=== PATIENT | male | born 1970 | race African-American/Black ===

== ENCOUNTER 2021-04-13 13:37 | Emergency (ER) | payer OTHER ==
[2021-04-13 13:45] VITALS: BMI 25.8
[2021-04-13] MEDS ORDERED: FOLIC ACID INJECTION - 1 MG, THIAMINE HCL 100 MG, MULTIVIT INJECTION ADULT 10 ML in SOD... IVPB ONE (14:17)
[2021-04-13] MEDS ORDERED: chlordiazePOXIDE HCL 25 MG CAPSULE PO ONE ×2 (14:17→16:24)
[2021-04-13] MEDS ORDERED: chlordiazePOXIDE HCL 25 MG CAPSULE ONE ×2 (14:46→16:58)
[2021-04-13 15:10] LABS: EPI CELLS 6 /uL (0-25.1); HYALINE CASTS 2 /uL (0-3.1); URINE APPEARANCE CLEAR; URINE BACTERIA 25 /uL (0-1359); URINE BILIRUBIN 2+ (NEGATIVE); URINE COLOR DK YELLOW; URINE GLUCOSE (UA) NEGATIVE (NEGATIVE); URINE KETONE 1+ (NEGATIVE); URINE LEUK ESTERASE NEGATIVE (NEGATIVE); URINE NITRITE NEGATIVE (NEGATIVE); URINE PROTEIN 2+ (NEGATIVE); URINE RBC 17 /uL (0-23.9); URINE UROBILINOGEN 4.0 E.U/dl mg/dL (0.2-1.0); URINE WBC 7 /uL (0-25.8)
[2021-04-13 15:17] LABS: BASO % 0.4 % (0-2.0); EOS % 0.3 % (0-4.5); HEMATOCRIT 43.1 % (35.4-49); HEMOGLOBIN 14.2 GM/dL (11.7-16.9); LYMPH % 16.4 % (8-40); MCH 30.4 pg (25.7-33.7); MCHC 32.9 g/dl (32.0-35.9); MEAN CELL VOLUME 92.3 fl (80-96); MEAN PLT VOLUME 9.1 fl (7.5-11.1); MONO % 11.5 % (3.8-10.2); NEUT % 71.4 % (42.8-82.8); PLATELET COUNT 149 10^3/uL (134-434); RBC 4.67 M/mm3 (4.00-5.60); RDW 14.8 % (11.9-15.9); WHITE BLOOD COUNT 4.9 K/mm3 (4.0-10.0)
[2021-04-13 15:24] LABS: INR 1.15 (0.83-1.09); PROTHROMBIN TIME (PATIENT) 13.9 SEC (9.7-13.0)
[2021-04-13 15:25] LABS: CHLORIDE 96 mmol/L (98-107); SODIUM 128 mmol/L (136-145)
[2021-04-13 15:27] LABS: ALBUMIN 3.9 g/dl (3.4-5.0); BLOOD UREA NITROGEN 5.8 mg/dL (7-18); CALCIUM 9.7 mg/dL (8.5-10.1); CO2 29 mmol/L (21-32); GLUCOSE,RANDOM 94 mg/dL (74-106)
[2021-04-13 15:30] LABS: CREATININE 0.8 mg/dL (0.55-1.3)
[2021-04-13 15:32] LABS: BILIRUBIN,TOTAL 1.1 mg/dL (0.2-1); TOT PROT 9.6 g/dl (6.4-8.2)
[2021-04-13 15:33] LABS: ALK PHOS 69 U/L (45-117)
[2021-04-13 15:35] LABS: ANION GAP 3 MMOL/L (8-16); SGOT/AST 219 U/L (15-37); SGPT/ALT 91 U/L (13-61)
[2021-04-13 17:19] LABS: CALCIUM 8.9 mg/dL (8.5-10.1)
[2021-04-13 17:20] LABS: ALBUMIN 3.7 g/dl (3.4-5.0); BLOOD UREA NITROGEN 6.2 mg/dL (7-18)
[2021-04-13 17:23] LABS: CREATININE 0.6 mg/dL (0.55-1.3)
[2021-04-13 17:24] LABS: BILIRUBIN,TOTAL 1.2 mg/dL (0.2-1)
[2021-04-13 17:25] LABS: TOT PROT 7.5 g/dl (6.4-8.2)
[2021-04-13 17:56] VITALS: BP 170/123; PULSE 86; TEMP 98.6
== END 2021-04-13 18:37 | disposition home or self-care (01) ==
LOC: JER 13:37
PROC: 3E033GC Introduction of Other Therapeutic Substance into Peripheral Vein, Percutaneous Approach (ICD-10-PCS; principal; 2021-04-13)
DX: F10.239 Alcohol dependence with withdrawal, unspecified (principal)
CPT/HCPCS: 36415; 80053; 81003; 85025; 85610; 87086; 93005; 93010; 99284-25

== ENCOUNTER 2024-02-17 19:16 | Observation (INO) | payer OTHER ==
[2024-02-17 20:42] LABS: BASO % 0.5 % (0-2.0); EOS % 0.5 % (0-4.5); HEMATOCRIT 37.4 % (35.4-49); HEMOGLOBIN 12.3 GM/dL (11.7-16.9); MCH 30.7 pg (25.7-33.7); MCHC 32.9 g/dl (32.0-35.9); MEAN CELL VOLUME 93.4 fl (80-96); MEAN PLT VOLUME 8.8 fl (7.5-11.1); MONO % 11.3 % (3.8-10.2); NEUT % 72.7 % (42.8-82.8); PLATELET COUNT 118 10^3/uL (134-434); RBC 4.01 M/mm3 (4.00-5.60); RDW 16.8 % (11.9-15.9); WHITE BLOOD COUNT 5.7 K/mm3 (4.0-10.0)
[2024-02-17 21:14] LABS: POTASSIUM 4.3 mmol/L (3.5-5.1)
[2024-02-17 21:16] LABS: CALCIUM 9.1 mg/dL (8.5-10.1)
[2024-02-17 21:17] LABS: ALBUMIN 3.5 g/dl (3.4-5.0); BLOOD UREA NITROGEN 6.7 mg/dL (7-18)
[2024-02-17 21:20] LABS: CREATININE 0.9 mg/dL (0.55-1.3)
[2024-02-17 21:21] LABS: BILIRUBIN,TOTAL 0.8 mg/dL (0.2-1); TOT PROT 7.8 g/dl (6.4-8.2)
[2024-02-17] MEDS ORDERED: MAGNESIUM SULFATE IN WATER 2 GM/50 ML IVPB IVPB ONE (21:49)
[2024-02-17] MEDS ORDERED: THIAMINE HCL 200 MG/2 ML VIAL ONE (21:49)
[2024-02-17] MEDS: THIAMINE HCL 200 MG/2 ML VIAL IVPB ONE (22:04)
[2024-02-17] MEDS: MAGNESIUM SULFATE IN WATER 2 GM/50 ML IVPB IVPB ONE (22:21)
[2024-02-17] MEDS: LACTATED RINGERS SOLUTION 1,000 ML/1,000 ML INFUS.BAG IV SCH (23:10)
[2024-02-18 01:21] VITALS: BMI 24.8
[2024-02-18 08:34] LABS: BASO % 0.4 % (0-2.0); EOS % 2.3 % (0-4.5); HEMATOCRIT 37.3 % (35.4-49); HEMOGLOBIN 12.1 GM/dL (11.7-16.9); LYMPH % 39.7 % (8-40); MCH 30.3 pg (25.7-33.7); MCHC 32.4 g/dl (32.0-35.9); MEAN CELL VOLUME 93.5 fl (80-96); MEAN PLT VOLUME 9.1 fl (7.5-11.1); MONO % 15.5 % (3.8-10.2); NEUT % 42.1 % (42.8-82.8); PLATELET COUNT 118 10^3/uL (134-434); RBC 3.99 M/mm3 (4.00-5.60); WHITE BLOOD COUNT 4.8 K/mm3 (4.0-10.0)
[2024-02-18] MEDS: FOLIC ACID 1 MG TABLET (FP) PO SCH (10:12)
[2024-02-18] MEDS: LOSARTAN POTASSIUM 25 MG TABLET PO SCH (10:12)
[2024-02-18] MEDS: MULTIVITAMINS (DAILY MVI) TABLET (FP) PO SCH (10:12)
[2024-02-18] MEDS: THIAMINE 100 MG TABLET PO SCH (10:12)
[2024-02-18 10:50] LABS: BLOOD UREA NITROGEN 6.4 mg/dL (7-18); CALCIUM 8.6 mg/dL (8.5-10.1); CREATININE 0.8 mg/dL (0.55-1.3); MAGNESIUM 1.5 mg/dL (1.8-2.4); POTASSIUM 3.5 mmol/L (3.5-5.1)
[2024-02-18] MEDS: MAGNESIUM 2GM/50ML STERILE WATER IVPB IVPB ONE (14:45)
[2024-02-18] MEDS: chlordiazePOXIDE HCL 10 MG CAPSULE PO PRN (14:46)
[2024-02-18 17:43] VITALS: RESP 20
[2024-02-18] MEDS: METOPROLOL TARTRATE 25 MG TABLET (FP) PO SCH (21:47)
[2024-02-18] MEDS: MAGNESIUM OXIDE 400 MG TABLET (FP) PO SCH (21:47)
[2024-02-19 08:29] LABS: POTASSIUM 3.7 mmol/L (3.5-5.1)
[2024-02-19 08:43] LABS: CALCIUM 9.4 mg/dL (8.5-10.1)
[2024-02-19 08:45] LABS: ALBUMIN 3.8 g/dl (3.4-5.0); BLOOD UREA NITROGEN 6.9 mg/dL (7-18); MAGNESIUM 1.9 mg/dL (1.8-2.4)
[2024-02-19 08:47] LABS: CREATININE 0.9 mg/dL (0.55-1.3)
[2024-02-19 08:49] LABS: BILIRUBIN,TOTAL 1.3 mg/dL (0.2-1); TOT PROT 8.2 g/dl (6.4-8.2)
[2024-02-19 10:52] VITALS: BP 109/88; PULSE 66; TEMP 97.9
[2024-02-19] MEDS: chlordiazePOXIDE HCL 10 MG CAPSULE PO ONE (11:34)
[2024-02-20] MEDS ORDERED: chlordiazePOXIDE HCL 10 MG CAPSULE PO PRN
== END 2024-02-19 11:48 | disposition other institution (70) ==
LOC: JER 19:16 → JERBED 21:41 → J4W 02-18 01:10
PROVIDERS: ADMIT Student in an Organized Health Care Education/Training Program; ATTEND Internal Medicine
PROC: 3E0337Z Introduction of Electrolytic and Water Balance Substance into Peripheral Vein, Percutaneous Approach (ICD-10-PCS; principal; 2024-02-17)
PROC: 3E023NZ Introduction of Analgesics, Hypnotics, Sedatives into Muscle, Percutaneous Approach (ICD-10-PCS; 2024-02-17)
PROC: 3E033GC Introduction of Other Therapeutic Substance into Peripheral Vein, Percutaneous Approach (ICD-10-PCS; 2024-02-17)
DX: F10.90 Alcohol use, unspecified, uncomplicated (principal); R55 Syncope and collapse; I10 Essential (primary) hypertension; E83.42 Hypomagnesemia; R00.0 Tachycardia, unspecified
CPT/HCPCS: 36415; 71045-TC-FY; 80048; 80053; 80307; 82962; 83735; 84484; 85025; 93005; 93010; 96361; 96365; 96372; 96375; 99285-25; G0378